=== PATIENT | male | born 1980 | race Caucasian/White ===

== ENCOUNTER 2018-12-06 17:09 | Emergency (ER) | payer OTHER ==
[2018-12-06] MEDS ORDERED: CEFTRIAXONE 1 GM/50 ML (PMX) 50 ML IVPB (18:30)
[2018-12-06 19:01] LABS: ADD MAN DIFF? NO
[2018-12-06 19:03] LABS: WHITE BLOOD COUNT 16.1 10^3/ul (4.8-10.8)
[2018-12-06 19:03] LABS: BASOPHIL # 0.1 10^3/ul (0.0-0.1); BASOPHILS % 0.4 % (0.0-2.0); EOSINOPHILS # 0.1 10^3/ul (0.0-0.5); EOSINOPHILS % 0.6 % (0.0-7.0); HEMATOCRIT 44.3 % (42.0-52.0); LYMPHOCYTES # 2.7 10^3/ul (0.8-2.9); LYMPHOCYTES % 16.6 % (15.0-51.0); MEAN CORPUSCULAR HEMOGLOBIN 30.1 pg (29.0-33.0); MEAN CORPUSCULAR HGB CONC 33.9 g/dl (32.0-37.0); MEAN CORPUSCULAR VOLUME 88.8 fl (82.0-101.0); MEAN PLATELET VOLUME 8.5 fl (7.4-10.4); MONOCYTE # 0.9 10^3/ul (0.3-0.9); MONOCYTES % 5.8 % (0.0-11.0); NEUTROPHIL # 12.3 10^3/ul (1.6-7.5); PLATELET COUNT 199 10^3/UL (140-415); RED BLOOD COUNT 4.99 10^6/ul (4.70-6.10); RED CELL DISTRIBUTION WIDTH 13.3 % (11.5-14.5)
[2018-12-06] MEDS: LIDOCAINE 1% (MDV) 20 ML INJ SC (19:03)
[2018-12-06] MEDS: ONDANSETRON 4 MG INJ IV (19:05)
[2018-12-06] MEDS: DEXAMETHASONE 10 MG/ML 1 ML INJ IV (19:05)
[2018-12-06] MEDS: CLINDAMYCIN 900 MG/D5W (PMX) 50 ML IVPB (19:06)
[2018-12-06] MEDS: SOD CHLORIDE 0.9% 1,000 ML IV (19:06)
[2018-12-06] MEDS: morphine 4 MG/ML VIAL IV (19:06)
[2018-12-06 19:24] LABS: ALANINE AMINOTRANSFERASE 16 IU/L (13-69); ALBUMIN 4.8 g/dl (3.3-4.9); ALKALINE PHOSPHATASE 90 IU/L (42-121); ANION GAP 13 (5-13); ASPARTATE AMINO TRANSFERASE 22 IU/L (15-46); BILIRUBIN,INDIRECT 0.3 mg/dl (0-1.1); BILIRUBIN,TOTAL 0.3 mg/dl (0.2-1.3); BLOOD UREA NITROGEN 13 mg/dl (7-20); CARBON DIOXIDE 26 mmol/L (21-31); CHLORIDE 101 mmol/L (97-110); CREATININE 0.55 mg/dl (0.61-1.24); Estimated GFR > 60 mL/min (>60); GLUCOSE 129 mg/dl (70-220); SODIUM 140 mmol/L (135-144); TOTAL PROTEIN 8.8 g/dl (6.1-8.1)
[2018-12-06] MEDS: BENZOCAINE 20% 56 ML SPRAY TOP (20:00)
== END 2018-12-06 20:50 | disposition home or self-care (01) ==
LOC: FTE 17:09
DX: J36 Peritonsillar abscess (principal); I10 Essential (primary) hypertension
CPT/HCPCS: 42700; 80053; 85025; 87880; 96365; 96375; 99284-25